=== PATIENT | male | born 1975 | race Caucasian/White ===

== ENCOUNTER 2020-02-14 03:03 | Inpatient (IN) ==
[2020-02-14] MEDS ORDERED: *HR* HYDROmorphone (PF) 1 MG/ML SYRINGE IVP ONE (03:11)
[2020-02-14] MEDS ORDERED: Isovue-370 500 ML BOTTLE IVP ONE (03:11)
[2020-02-14] MEDS ORDERED: 0.9 % Sodium Chloride 1,000 ML IVC ONE (03:11)
[2020-02-14 06:16] LABS: Prothrombin Time 11.8 Seconds (9.4-12.1)
[2020-02-14] MEDS ORDERED: Naloxone 0.4 MG/ML INJ IVP PRN (06:35)
[2020-02-14] MEDS ORDERED: Ondansetron 4 MG/2 ML VIAL IVP PRN (06:35)
[2020-02-14] MEDS: 0.9 % Sodium Chloride 1,000 ML IVC SCH ×2 (06:58→16:26)
[2020-02-14] MEDS: Piperacillin/Tazobactam 3.375 GM in 0.9 % Sodium Chloride Mini Bag 100 ML IVPB SCH ×3 (08:50→22:52)
[2020-02-14] MEDS: Ketorolac 15 MG/ML VIAL IVP SCH ×4 (10:04→23:26)
[2020-02-14] MEDS: *HR* Buprenorphine HCl 8 MG TAB.SUBL SL SCH ×2 (10:05→20:55)
[2020-02-14] MEDS: BuPROPion XL (24 HR) 150 MG TABLET PO SCH (13:41)
[2020-02-14] MEDS ORDERED: Dexamethasone 4 MG/ML VIAL ONE (15:52)
[2020-02-14] MEDS ORDERED: *HR* FentaNYL (PF) 100 MCG/2 ML VIAL ONE (15:52)
[2020-02-14] MEDS ORDERED: *HR* Rocuronium Bromide 50 MG/5 ML VIAL ONE (15:52)
[2020-02-14] MEDS ORDERED: Ondansetron 4 MG/2 ML VIAL ONE (15:52)
[2020-02-14] MEDS ORDERED: Lidocaine -MPF 2% 2 ML VIAL ONE (15:52)
[2020-02-14] MEDS ORDERED: *HR* Midazolam HCl 2 MG/2 ML VIAL ONE (15:52)
[2020-02-14] MEDS ORDERED: *HR* Succinylcholine 200 MG/10 ML VIAL IVP ONE (15:52)
[2020-02-14] MEDS ORDERED: *HR* Propofol 200 MG/20 ML VIAL IVP ONE (15:52)
[2020-02-14] MEDS: Pregabalin 75 MG CAPSULE PO SCH ×2 (16:26→20:56)
[2020-02-14] MEDS: *HR* Heparin 5,000 UNIT/ML VIAL SQ SCH (16:28)
[2020-02-14] MEDS ORDERED: *HR* PHENYLEPHRINE 1,000 MCG/10 ML SYRINGE IVP ONE (16:29)
[2020-02-14] MEDS ORDERED: Indomethacin 50 MG SUPP.RECT RC ONE (17:30)
[2020-02-14] MEDS ORDERED: rOPINIRole 0.25 MG TABLET PO SCH (21:00)
[2020-02-15] MEDS: 0.9 % Sodium Chloride 1,000 ML IVC SCH ×3 (00:04→05:02)
[2020-02-15 02:51] LABS: Basophils % 0.2 %; Eosinophils % 0.2 %; Hemoglobin 13.1 g/dL (12.9-16.9); Immature Granulocytes % 0.3 % (0-4); Lymphocytes % 10.1 %; Mean Corpuscular Hemoglobin 28.4 pg (28.0-33.3); Mean Corpuscular Volume 88.7 fL (83.0-100.0); Mean Platelet Volume 9.9 fL (9.4-12.4); Monocytes # 0.1 K/mcL (0.0-1.3); Neutrophils # 8.8 K/mcL (1.6-8.9); Platelet Count 270 K/mcL (140-400); Red Blood Count 4.62 M/mcL (4.19-5.50); Red Cell Distribution Width 13.5 % (11.5-14.5); Segmented Neutrophils % 88.2 %
[2020-02-15 03:21] LABS: Alanine Aminotransferase 204 Units/L (7-52); Albumin/Globulin Ratio 1.3 (1.1-2.2); Alkaline Phosphatase 303 Units/L (34-104); Aspartate Amino Transferase 185 Units/L (13-39); BUN/Creatinine Ratio 16 (6-26); Bilirubin,Total 5.8 mg/dL (0.3-1.0); Blood Urea Nitrogen 16 mg/dL (6-20); Calcium 8.9 mg/dL (8.6-10.3); Carbon Dioxide 22 mEq/L (23-29); Chloride 107 mEq/L (98-107); Globulin 3.1 g/dL (2.4-3.5); Glucose 103 mg/dL (70-105); Osmolality,Calculated 283 (280-300); Potassium 4.5 mEq/L (3.5-5.1); Sodium 136 mEq/L (136-145); Total Protein 7.1 g/dL (6.4-8.9); eGFR For African Americans > 60 (> 60); eGFR For Non-African Americans > 60 (> 60)
[2020-02-15] MEDS: Ketorolac 15 MG/ML VIAL IVP SCH ×3 (04:54→18:40)
[2020-02-15] MEDS: *HR* Heparin 5,000 UNIT/ML VIAL SQ SCH ×2 (04:55→18:40)
[2020-02-15] MEDS: Piperacillin/Tazobactam 3.375 GM in 0.9 % Sodium Chloride Mini Bag 100 ML IVPB SCH ×2 (08:14→16:18)
[2020-02-15] MEDS: BuPROPion XL (24 HR) 150 MG TABLET PO SCH (08:16)
[2020-02-15] MEDS: *HR* Buprenorphine HCl 8 MG TAB.SUBL SL SCH ×2 (08:16→21:20)
[2020-02-15] MEDS: Pregabalin 75 MG CAPSULE PO SCH ×2 (08:16→21:22)
[2020-02-15] MEDS ORDERED: Nicotine 21 MG PATCH.TD24 TD SCH (09:00)
[2020-02-15] MEDS ORDERED: lisinopriL 5 MG TABLET PO SCH (09:00)
[2020-02-15] MEDS ORDERED: Ringers Solution, Lactated 1,000 ML IVC SCH ×2 (09:15→15:49)
[2020-02-15] MEDS ORDERED: Lidocaine -MPF 2% 2 ML VIAL ONE (09:22)
[2020-02-15] MEDS ORDERED: Ondansetron 4 MG/2 ML VIAL ONE (09:22)
[2020-02-15] MEDS ORDERED: Lidocaine HCL 4 ML Topical Solution (Laryng-O-Jet Kit Sterile Pak) TP ONE (09:22)
[2020-02-15] MEDS ORDERED: *HR* Rocuronium Bromide 50 MG/5 ML VIAL ONE ×2 (09:22→13:30)
[2020-02-15] MEDS ORDERED: *HR* Succinylcholine 200 MG/10 ML VIAL IVP ONE (09:22)
[2020-02-15] MEDS ORDERED: *HR* Midazolam HCl 2 MG/2 ML VIAL ONE (12:14)
[2020-02-15] MEDS ORDERED: *HR* Propofol 200 MG/20 ML VIAL IVP ONE (12:14)
[2020-02-15] MEDS ORDERED: *HR* FentaNYL (PF) 100 MCG/2 ML VIAL ONE (12:14)
[2020-02-15] MEDS ORDERED: CefOXitin 2,000 MG VIAL ONE (12:30)
[2020-02-15] MEDS ORDERED: Dexamethasone 4 MG/ML VIAL ONE (13:06)
[2020-02-15] MEDS ORDERED: *HR* Promethazine 25 MG/ML VIAL IVP PRN (14:24)
[2020-02-15] MEDS ORDERED: Ondansetron 4 MG/2 ML VIAL IVP ONE (14:24)
[2020-02-15] MEDS ORDERED: *HR* OxyCODONE Immed Rel 5 MG TABLET PO STA (14:31)
[2020-02-15] MEDS: *HR* HYDROmorphone (PF) 1 MG/ML SYRINGE IVP PRN ×2 (14:38→14:45)
[2020-02-15] MEDS ORDERED: *HR* Labetalol 20 MG/4 ML SYRINGE IVP ONE ×2 (14:59→15:00)
[2020-02-15] MEDS ORDERED: cefOXitin 1,000 MG, 0.9 % Sodium Chloride 1,000 ML IR ONE (15:00)
[2020-02-15] MEDS ORDERED: Ondansetron 4 MG/2 ML VIAL IVP PRN (15:49)
[2020-02-15] MEDS ORDERED: Naloxone 0.4 MG/ML INJ IVP PRN (15:49)
[2020-02-15] MEDS ORDERED: *HR* OxyCODONE/APAP 5/325 TABLET PO ONE (17:10)
[2020-02-15] MEDS ORDERED: rOPINIRole 0.25 MG TABLET PO SCH (21:00)
[2020-02-16] MEDS: Ketorolac 15 MG/ML VIAL IVP SCH ×2 (01:02→05:25)
[2020-02-16] MEDS: Piperacillin/Tazobactam 3.375 GM in 0.9 % Sodium Chloride Mini Bag 100 ML IVPB SCH ×2 (01:02→07:45)
[2020-02-16 03:47] LABS: Hematocrit 36.9 % (37.5-50.1); Hemoglobin 11.7 g/dL (12.9-16.9); Mean Corpuscular HGB Conc 31.7 g/dL (31.6-35.5); Mean Corpuscular Hemoglobin 28.4 pg (28.0-33.3); Mean Corpuscular Volume 89.6 fL (83.0-100.0); Mean Platelet Volume 10.1 fL (9.4-12.4); Platelet Count 263 K/mcL (140-400); Red Blood Count 4.12 M/mcL (4.19-5.50); Red Cell Distribution Width 13.8 % (11.5-14.5); White Blood Count 14.3 K/mcL (4.3-11.1)
[2020-02-16 04:07] LABS: Alanine Aminotransferase 224 Units/L (7-52); Albumin 3.7 g/dL (3.5-5.7); Albumin/Globulin Ratio 1.2 (1.1-2.2); Alkaline Phosphatase 277 Units/L (34-104); Aspartate Amino Transferase 190 Units/L (13-39); BUN/Creatinine Ratio 17 (6-26); Bilirubin,Total 3.3 mg/dL (0.3-1.0); Blood Urea Nitrogen 17 mg/dL (6-20); Calcium 8.8 mg/dL (8.6-10.3); Carbon Dioxide 22 mEq/L (23-29); Chloride 105 mEq/L (98-107); Glucose 121 mg/dL (70-105); Osmolality,Calculated 287 (280-300); Potassium 3.9 mEq/L (3.5-5.1); Sodium 137 mEq/L (136-145); Total Protein 6.7 g/dL (6.4-8.9); eGFR For African Americans > 60 (> 60); eGFR For Non-African Americans > 60 (> 60)
[2020-02-16] MEDS: *HR* Heparin 5,000 UNIT/ML VIAL SQ SCH (05:24)
[2020-02-16 06:35] VITALS: BP 130/85
[2020-02-16] MEDS: *HR* Buprenorphine HCl 8 MG TAB.SUBL SL SCH (07:46)
[2020-02-16] MEDS: Pregabalin 75 MG CAPSULE PO SCH (07:47)
[2020-02-16] MEDS ORDERED: Nicotine 21 MG PATCH.TD24 TD SCH (09:00)
[2020-02-16] MEDS ORDERED: BuPROPion XL (24 HR) 150 MG TABLET PO SCH (09:00)
== END 2020-02-16 11:53 | disposition home or self-care (01) | DRG 853 ==
LOC: 3ANU 03:03 → EMEROOARM 03:03 → SUATTDRO 05:13 → 3ANU 05:37
PROVIDERS: ADMIT Internal Medicine; ATTEND Internal Medicine

== ENCOUNTER 2020-02-25 16:21 | Inpatient (IN) ==
[2020-02-25] MEDS ORDERED: Ketorolac 30 MG/ML VIAL IVP ONE (16:39)
[2020-02-25] MEDS ORDERED: 0.9 % Sodium Chloride 1,000 ML IVC ONE (16:39)
[2020-02-25] MEDS ORDERED: Isovue-370 500 ML BOTTLE IVP ONE ×2 (16:40→16:45)
[2020-02-25 16:59] LABS: Basophils # 0.1 K/mcL (0.0-0.2); Basophils % 0.2 %; Eosinophils # 0.3 K/mcL (0.0-0.6); Eosinophils % 1.4 %; Hematocrit 33.6 % (37.5-50.1); Hemoglobin 10.8 g/dL (12.9-16.9); Immature Granulocytes % 1.2 % (0-4); Lymphocytes # 1.6 K/mcL (0.6-4.6); Lymphocytes % 7.9 %; Mean Corpuscular HGB Conc 32.1 g/dL (31.6-35.5); Mean Corpuscular Hemoglobin 28.9 pg (28.0-33.3); Mean Corpuscular Volume 89.8 fL (83.0-100.0); Monocytes # 1.2 K/mcL (0.0-1.3); Neutrophils # 16.7 K/mcL (1.6-8.9); Nucleated Red Blood Cells 0.1 /100 WBC (0); Platelet Count 500 K/mcL (140-400); Red Blood Count 3.74 M/mcL (4.19-5.50); Red Cell Distribution Width 14.5 % (11.5-14.5); Segmented Neutrophils % 83.3 %
[2020-02-25 17:01] LABS: Bilirubin,Urine Small (Negative); Blood,Urine Negative (Negative); Clarity,Urine Clear (Clear); Color,Urine Dark Yellow (Yellow); Glucose,Urine (UA) Normal (Normal); Ketones,Urine Negative (Negative); Leukocyte Esterase,Urine Negative (Negative); Nitrite,Urine Negative (Negative); Protein,Urine 100 mg/dL (Neg-Trace); Specific Gravity,Urine > 1.030 (1.010-1.025)
[2020-02-25 17:05] LABS: Hyaline Casts,Urine None Seen per lpf (None-Few); Squamous Epithelial Cell,Urine Many per lpf (None-Few)
[2020-02-25 17:08] LABS: INR 1.3; Prothrombin Time 15.2 Seconds (9.4-12.1)
[2020-02-25 17:11] LABS: Activated Partial Thrombo Time 30.4 Seconds (26.0-36.0)
[2020-02-25 17:19] LABS: Alanine Aminotransferase 31 Units/L (7-52); Albumin 3.3 g/dL (3.5-5.7); Albumin/Globulin Ratio 0.8 (1.1-2.2); Alkaline Phosphatase 416 Units/L (34-104); Amylase 12 Units/L (29-103); Aspartate Amino Transferase 39 Units/L (13-39); BUN/Creatinine Ratio 15 (6-26); Bilirubin,Direct 0.5 mg/dL (0.0-0.2); Bilirubin,Indirect 0.8 mg/dL (0.0-1.0); Bilirubin,Total 1.3 mg/dL (0.3-1.0); Blood Urea Nitrogen 12 mg/dL (6-20); Calcium 9.1 mg/dL (8.6-10.3); Carbon Dioxide 24 mEq/L (23-29); Chloride 101 mEq/L (98-107); Globulin 4.1 g/dL (2.4-3.5); Glucose 117 mg/dL (70-105); Lipase 14 Units/L (11-82); Osmolality,Calculated 279 (280-300); Potassium 3.6 mEq/L (3.5-5.1); Sodium 134 mEq/L (136-145); Total Protein 7.4 g/dL (6.4-8.9); eGFR For African Americans > 60 (> 60); eGFR For Non-African Americans > 60 (> 60)
[2020-02-25 17:20] LABS: Amorphous Sediment,Urine Few per hpf (Few); Bacteria,Urine Few per hpf (None-Few); RBC,Urine 0-3 per hpf (0-3); WBC,Urine 0-3 per hpf (0-3)
[2020-02-25] MEDS ORDERED: Piperacillin/Tazobactam 3.375 GM in Water for inj. (sterile) 20 ML IVP ONE (17:51)
[2020-02-25] MEDS ORDERED: *HR* HYDROmorphone (PF) 1 MG/ML SYRINGE IVP ONE (18:13)
[2020-02-25] MEDS ORDERED: Naloxone 0.4 MG/ML INJ IVP PRN (20:13)
[2020-02-25] MEDS ORDERED: Ondansetron 4 MG/2 ML VIAL IVP PRN (20:13)
[2020-02-25] MEDS: Ringers Solution, Lactated 1,000 ML IVC SCH (21:05)
[2020-02-25] MEDS ORDERED: *HR* Buprenorphine HCl 8 MG TAB.SUBL SL SCH (21:45)
[2020-02-25] MEDS ORDERED: Acetaminophen IV 1,000 MG/100 ML INFUS..BTL IVPB ONE (21:47)
[2020-02-25] MEDS: *HR* Buprenorphine HCl 8 MG TAB.SUBL SL SCH (22:44)
[2020-02-26] MEDS: Piperacillin/Tazobactam 3.375 GM in 0.9 % Sodium Chloride Mini Bag 100 ML IVPB SCH ×3 (00:40→15:50)
[2020-02-26] MEDS: *HR* FentaNYL (PF) 100 MCG/2 ML VIAL IVP PRN ×6 (01:38→21:25)
[2020-02-26] MEDS ORDERED: Albuterol 2.5 MG/3 ML NEBULIZER IH PRN (02:45)
[2020-02-26] MEDS: Nicotine 21 MG PATCH.TD24 TD SCH (07:32)
[2020-02-26] MEDS: *HR* Buprenorphine HCl 8 MG TAB.SUBL SL SCH ×2 (07:33→21:16)
[2020-02-26 08:21] LABS: Basophils # 0.1 K/mcL (0.0-0.2); Basophils % 0.4 %; Eosinophils # 0.4 K/mcL (0.0-0.6); Eosinophils % 1.8 %; Hematocrit 30.6 % (37.5-50.1); Hemoglobin 9.7 g/dL (12.9-16.9); Immature Granulocytes % 0.7 % (0-4); Lymphocytes # 1.6 K/mcL (0.6-4.6); Lymphocytes % 8.1 %; Mean Corpuscular HGB Conc 31.7 g/dL (31.6-35.5); Mean Corpuscular Hemoglobin 28.2 pg (28.0-33.3); Mean Platelet Volume 9.9 fL (9.4-12.4); Monocytes # 1.7 K/mcL (0.0-1.3); Monocytes % 8.5 %; Neutrophils # 16.1 K/mcL (1.6-8.9); Platelet Count 509 K/mcL (140-400); Red Blood Count 3.44 M/mcL (4.19-5.50); Red Cell Distribution Width 14.6 % (11.5-14.5); Segmented Neutrophils % 80.5 %
[2020-02-26 08:28] LABS: INR 1.4; Prothrombin Time 15.7 Seconds (9.4-12.1)
[2020-02-26 08:30] LABS: Activated Partial Thrombo Time 30.3 Seconds (26.0-36.0)
[2020-02-26] MEDS ORDERED: 0.9 % Sodium Chloride 500 ML ONE (09:32)
[2020-02-26] MEDS ORDERED: *HR* FentaNYL (PF) 100 MCG/2 ML VIAL IVP ONE (09:37)
[2020-02-26] MEDS ORDERED: *HR* Midazolam HCl 2 MG/2 ML VIAL IVP ONE (09:37)
[2020-02-26 09:39] LABS: Alanine Aminotransferase 33 Units/L (7-52); Albumin 3.1 g/dL (3.5-5.7); Alkaline Phosphatase 385 Units/L (34-104); Aspartate Amino Transferase 41 Units/L (13-39); BUN/Creatinine Ratio 16 (6-26); Bilirubin,Total 1.2 mg/dL (0.3-1.0); Blood Urea Nitrogen 13 mg/dL (6-20); Calcium 8.7 mg/dL (8.6-10.3); Carbon Dioxide 21 mEq/L (23-29); Chloride 104 mEq/L (98-107); Glucose 88 mg/dL (70-105); Osmolality,Calculated 280 (280-300); Sodium 135 mEq/L (136-145); eGFR For African Americans > 60 (> 60); eGFR For Non-African Americans > 60 (> 60)
[2020-02-26 09:51] LABS: Albumin/Globulin Ratio 0.8 (1.1-2.2); Globulin 3.7 g/dL (2.4-3.5); Total Protein 6.8 g/dL (6.4-8.9)
[2020-02-26] MEDS: Ringers Solution, Lactated 1,000 ML IVC SCH (11:38)
[2020-02-27] MEDS: *HR* FentaNYL (PF) 100 MCG/2 ML VIAL IVP PRN ×2 (04:42→12:18)
[2020-02-27] MEDS ORDERED: Ringers Solution, Lactated 1,000 ML IVC SCH ×2 (06:30→09:15)
[2020-02-27 07:15] LABS: Basophils # 0.1 K/mcL (0.0-0.2); Basophils % 0.5 %; Eosinophils # 0.4 K/mcL (0.0-0.6); Eosinophils % 2.3 %; Hematocrit 30.2 % (37.5-50.1); Hemoglobin 9.5 g/dL (12.9-16.9); Lymphocytes % 10.8 %; Mean Corpuscular HGB Conc 31.5 g/dL (31.6-35.5); Mean Corpuscular Hemoglobin 28.4 pg (28.0-33.3); Mean Corpuscular Volume 90.1 fL (83.0-100.0); Mean Platelet Volume 9.9 fL (9.4-12.4); Monocytes # 1.4 K/mcL (0.0-1.3); Monocytes % 7.7 %; Neutrophils # 14.1 K/mcL (1.6-8.9); Platelet Count 578 K/mcL (140-400); Red Blood Count 3.35 M/mcL (4.19-5.50); Red Cell Distribution Width 14.6 % (11.5-14.5); Segmented Neutrophils % 77.7 %; White Blood Count 18.2 K/mcL (4.3-11.1)
[2020-02-27 07:37] LABS: Alanine Aminotransferase 26 Units/L (7-52); Albumin 2.9 g/dL (3.5-5.7); Albumin/Globulin Ratio 0.8 (1.1-2.2); Alkaline Phosphatase 328 Units/L (34-104); Aspartate Amino Transferase 31 Units/L (13-39); BUN/Creatinine Ratio 16 (6-26); Blood Urea Nitrogen 12 mg/dL (6-20); Calcium 8.7 mg/dL (8.6-10.3); Carbon Dioxide 20 mEq/L (23-29); Chloride 106 mEq/L (98-107); Globulin 3.6 g/dL (2.4-3.5); Glucose 68 mg/dL (70-105); Osmolality,Calculated 284 (280-300); Potassium 3.9 mEq/L (3.5-5.1); Sodium 138 mEq/L (136-145); Total Protein 6.5 g/dL (6.4-8.9); eGFR For African Americans > 60 (> 60); eGFR For Non-African Americans > 60 (> 60)
[2020-02-27] MEDS ORDERED: *HR* Succinylcholine 200 MG/10 ML VIAL IVP ONE (07:40)
[2020-02-27] MEDS ORDERED: Dexamethasone 4 MG/ML VIAL ONE (07:40)
[2020-02-27] MEDS ORDERED: Ondansetron 4 MG/2 ML VIAL ONE (07:40)
[2020-02-27] MEDS ORDERED: Lidocaine -MPF 2% 2 ML VIAL ONE (07:40)
[2020-02-27] MEDS ORDERED: *HR* FentaNYL (PF) 100 MCG/2 ML VIAL ONE ×2 (07:41→08:53)
[2020-02-27] MEDS ORDERED: *HR* Propofol 200 MG/20 ML VIAL IVP ONE (07:41)
[2020-02-27] MEDS ORDERED: Dextrose Gel 15 GM/37.5 ML TUBE PO PRN ×2 (08:04)
[2020-02-27] MEDS ORDERED: *HR* Dextrose 50 % in Water (Syg) 50 ML SYRINGE IVP PRN (08:04)
[2020-02-27] MEDS ORDERED: D5% in Water 1,000 ML IVC PRN (08:04)
[2020-02-27] MEDS: *HR* Buprenorphine HCl 8 MG TAB.SUBL SL SCH ×2 (08:14→20:50)
[2020-02-27] MEDS: Piperacillin/Tazobactam 3.375 GM in 0.9 % Sodium Chloride Mini Bag 100 ML IVPB SCH ×4 (08:15→23:50)
[2020-02-27] MEDS ORDERED: D5% in Lactated Ringers 1,000 ML IVC SCH (08:15)
[2020-02-27] MEDS: Nicotine 21 MG PATCH.TD24 TD SCH (08:16)
[2020-02-27] MEDS ORDERED: Indomethacin 50 MG SUPP.RECT RC ONE (10:32)
[2020-02-27] MEDS ORDERED: *HR* OxyCODONE Immed Rel 5 MG TABLET PO PRN (10:56)
[2020-02-27] MEDS ORDERED: Ondansetron 4 MG/2 ML VIAL IVP ONE (10:56)
[2020-02-27] MEDS: Insulin LISPRO 300 UNITS/3 ML VIAL SQ SCH ×2 (12:19→17:57)
[2020-02-27] MEDS ORDERED: *HR* FentaNYL (PF) 100 MCG/2 ML VIAL IVP PRN (12:19)
[2020-02-28] MEDS: Insulin LISPRO 300 UNITS/3 ML VIAL SQ SCH ×2 (01:10→05:58)
[2020-02-28] MEDS ORDERED: *HR* Heparin 5,000 UNIT/ML VIAL SQ SCH (06:00)
[2020-02-28 07:08] VITALS: BP 136/84
[2020-02-28 07:57] LABS: BUN/Creatinine Ratio 16 (6-26); Blood Urea Nitrogen 18 mg/dL (6-20); Calcium 8.5 mg/dL (8.6-10.3); Carbon Dioxide 25 mEq/L (23-29); Chloride 105 mEq/L (98-107); Glucose 153 mg/dL (70-105); Magnesium 1.9 mg/dL (1.6-2.6); Osmolality,Calculated 289 (280-300); Phosphorous 4.1 mg/dL (2.7-4.5); Potassium 4.2 mEq/L (3.5-5.1); Sodium 137 mEq/L (136-145); eGFR For African Americans > 60 (> 60); eGFR For Non-African Americans > 60 (> 60)
[2020-02-28 08:03] LABS: Basophils % 0.2 %; Eosinophils # 0.1 K/mcL (0.0-0.6); Eosinophils % 0.2 %; Hematocrit 29.8 % (37.5-50.1); Hemoglobin 9.6 g/dL (12.9-16.9); Immature Granulocytes % 1.8 % (0-4); Lymphocytes # 1.6 K/mcL (0.6-4.6); Lymphocytes % 7.3 %; Mean Corpuscular HGB Conc 32.2 g/dL (31.6-35.5); Mean Platelet Volume 9.6 fL (9.4-12.4); Monocytes # 1.4 K/mcL (0.0-1.3); Monocytes % 6.4 %; Neutrophils # 18.1 K/mcL (1.6-8.9); Platelet Count 601 K/mcL (140-400); Red Blood Count 3.31 M/mcL (4.19-5.50); Red Cell Distribution Width 14.1 % (11.5-14.5); Segmented Neutrophils % 84.1 %; White Blood Count 21.6 K/mcL (4.3-11.1)
[2020-02-28] MEDS: Piperacillin/Tazobactam 3.375 GM in 0.9 % Sodium Chloride Mini Bag 100 ML IVPB SCH (08:11)
[2020-02-28] MEDS: *HR* Buprenorphine HCl 8 MG TAB.SUBL SL SCH (08:11)
[2020-02-28] MEDS: Nicotine 21 MG PATCH.TD24 TD SCH (08:11)
[2020-02-28] MEDS ORDERED: Aminoglycoside Consult 1 EACH MC ONE (11:37)
[2020-02-28] MEDS ORDERED: Pregabalin 75 MG CAPSULE PO SCH (15:00)
[2020-02-28] MEDS ORDERED: rOPINIRole 0.25 MG TABLET PO SCH (21:00)
[2020-02-29] MEDS ORDERED: BuPROPion XL (24 HR) 150 MG TABLET PO SCH (09:00)
[2020-02-29] MEDS ORDERED: lisinopriL 5 MG TABLET PO SCH (09:00)
== END 2020-02-28 11:38 | disposition left against medical advice (07) | DRG 871 ==
LOC: 2NENU 16:21 → EMEROOARM 16:21 → SUATTDRO 18:28 → 2NENU 19:38 → 3ANU 02-26 02:11 → SUATTDRO 02-26 11:43
PROVIDERS: ADMIT Internal Medicine; ATTEND Internal Medicine
PROC: IRDRAIN (2020-02-26 12:00)

== ENCOUNTER 2020-03-14 20:23 | Observation (INO) ==
[2020-03-14] MEDS ORDERED: Isovue-370 500 ML BOTTLE IVP ONE (20:55)
[2020-03-14 21:30] LABS: Basophils # 0.1 K/mcL (0.0-0.2); Basophils % 1.2 %; Eosinophils # 0.8 K/mcL (0.0-0.6); Eosinophils % 7.6 %; Hematocrit 34.8 % (37.5-50.1); Hemoglobin 10.8 g/dL (12.9-16.9); Immature Granulocytes % 0.3 % (0-4); Lymphocytes # 1.7 K/mcL (0.6-4.6); Lymphocytes % 16.4 %; Mean Platelet Volume 9.6 fL (9.4-12.4); Monocytes # 0.9 K/mcL (0.0-1.3); Monocytes % 8.3 %; Neutrophils # 6.8 K/mcL (1.6-8.9); Platelet Count 497 K/mcL (140-400); Red Cell Distribution Width 13.4 % (11.5-14.5); Segmented Neutrophils % 66.2 %; White Blood Count 10.3 K/mcL (4.3-11.1)
[2020-03-14 21:50] LABS: Calcium 9.5 mg/dL (8.6-10.3)
[2020-03-14] MEDS ORDERED: 0.9 % Sodium Chloride 1,000 ML IVC ONE (22:01)
[2020-03-14] MEDS ORDERED: Vancomycin 1,500 MG/265 ML IV.SOLN IVPB ONE (22:12)
[2020-03-14] MEDS ORDERED: Piperacillin/Tazobactam 3.375 GM in 0.9 % Sodium Chloride Mini Bag 100 ML IVPB ONE (22:12)
[2020-03-15] MEDS ORDERED: Acetaminophen 325 MG TABLET PO PRN (04:07)
[2020-03-15] MEDS ORDERED: Ondansetron ODT 4 MG TAB.RAPDIS SL PRN (04:07)
[2020-03-15] MEDS ORDERED: Naloxone 0.4 MG/ML INJ IVP PRN (04:07)
[2020-03-15 06:48] LABS: Basophils # 0.1 K/mcL (0.0-0.2); Basophils % 1.2 %; Eosinophils # 1.1 K/mcL (0.0-0.6); Eosinophils % 9.1 %; Hematocrit 33.9 % (37.5-50.1); Hemoglobin 10.6 g/dL (12.9-16.9); Immature Granulocytes % 0.4 % (0-4); Lymphocytes # 2.5 K/mcL (0.6-4.6); Lymphocytes % 20.9 %; Mean Corpuscular HGB Conc 31.3 g/dL (31.6-35.5); Mean Corpuscular Hemoglobin 27.3 pg (28.0-33.3); Mean Corpuscular Volume 87.4 fL (83.0-100.0); Monocytes # 0.9 K/mcL (0.0-1.3); Monocytes % 7.7 %; Neutrophils # 7.2 K/mcL (1.6-8.9); Platelet Count 523 K/mcL (140-400); Red Blood Count 3.88 M/mcL (4.19-5.50); Red Cell Distribution Width 13.7 % (11.5-14.5); Segmented Neutrophils % 60.7 %; White Blood Count 11.9 K/mcL (4.3-11.1)
[2020-03-15 06:52] LABS: INR 1.3; Prothrombin Time 14.9 Seconds (9.4-12.1)
[2020-03-15 07:08] LABS: Alanine Aminotransferase 19 Units/L (7-52); Albumin 3.4 g/dL (3.5-5.7); Albumin/Globulin Ratio 0.7 (1.1-2.2); Alkaline Phosphatase 176 Units/L (34-104); Aspartate Amino Transferase 20 Units/L (13-39); BUN/Creatinine Ratio 12 (6-26); Bilirubin,Total 0.5 mg/dL (0.3-1.0); Blood Urea Nitrogen 17 mg/dL (6-20); Calcium 9.1 mg/dL (8.6-10.3); Carbon Dioxide 24 mEq/L (23-29); Chloride 102 mEq/L (98-107); Globulin 4.6 g/dL (2.4-3.5); Glucose 98 mg/dL (70-105); Osmolality,Calculated 284 (280-300); Potassium 4.2 mEq/L (3.5-5.1); Sodium 136 mEq/L (136-145); eGFR For African Americans > 60 (> 60); eGFR For Non-African Americans 52 (> 60)
[2020-03-15 07:25] LABS: Lactate Dehydrogenase 240 Units/L (140-271)
[2020-03-15 07:52] LABS: RBC,Pleural Fluid 0.022 M/mcL
[2020-03-15 07:54] LABS: Total Protein,Pleural Fluid 5.5 g/dL
[2020-03-15] MEDS ORDERED: 0.9 % Sodium Chloride 500 ML IVC SCH (08:00)
[2020-03-15] MEDS: BuPROPion XL (24 HR) 150 MG TABLET PO SCH (09:50)
[2020-03-15] MEDS: MetroNIDAZOLE 500 MG/100 ML 500 MG/100 ML BAG IVPB SCH ×2 (09:50→15:25)
[2020-03-15] MEDS: Pregabalin 75 MG CAPSULE PO SCH ×3 (09:50→20:38)
[2020-03-15] MEDS: Vancomycin 1,500 MG/265 ML IV.SOLN IVPB SCH (09:51)
[2020-03-15] MEDS: Cefepime HCl 2,000 MG in Water for inj. (sterile) 20 ML IVP SCH ×2 (09:51→15:23)
[2020-03-15 10:24] LABS: Basophils,Pleural Fluid 0 %
[2020-03-15 10:25] LABS: Appearance of Pleural Fl Hazy (Clear)
[2020-03-15] MEDS ORDERED: Aminoglycoside Consult 1 EACH MC ONE (14:05)
[2020-03-15] MEDS ORDERED: rOPINIRole 0.25 MG TABLET PO SCH (21:00)
[2020-03-15] MEDS: SUBOXONE SL SCH (21:06)
[2020-03-16] MEDS: Cefepime HCl 2,000 MG in Water for inj. (sterile) 20 ML IVP SCH (00:47)
[2020-03-16] MEDS: MetroNIDAZOLE 500 MG/100 ML 500 MG/100 ML BAG IVPB SCH (00:47)
[2020-03-16] MEDS: Vancomycin 1,500 MG/265 ML IV.SOLN IVPB SCH (00:54)
[2020-03-16 01:51] LABS: Basophils # 0.1 K/mcL (0.0-0.2); Basophils % 1.1 %; Eosinophils # 0.9 K/mcL (0.0-0.6); Eosinophils % 9.6 %; Hematocrit 30.3 % (37.5-50.1); Hemoglobin 9.3 g/dL (12.9-16.9); Immature Granulocytes % 0.5 % (0-4); Lymphocytes # 2.6 K/mcL (0.6-4.6); Lymphocytes % 27.2 %; Mean Corpuscular HGB Conc 30.7 g/dL (31.6-35.5); Mean Corpuscular Hemoglobin 26.9 pg (28.0-33.3); Mean Corpuscular Volume 87.6 fL (83.0-100.0); Monocytes # 0.6 K/mcL (0.0-1.3); Monocytes % 6.7 %; Neutrophils # 5.1 K/mcL (1.6-8.9); Platelet Count 425 K/mcL (140-400); Red Blood Count 3.46 M/mcL (4.19-5.50); Segmented Neutrophils % 54.9 %; White Blood Count 9.4 K/mcL (4.3-11.1)
[2020-03-16 02:09] LABS: BUN/Creatinine Ratio 12 (6-26); Blood Urea Nitrogen 14 mg/dL (6-20); Calcium 8.6 mg/dL (8.6-10.3); Carbon Dioxide 23 mEq/L (23-29); Chloride 105 mEq/L (98-107); Glucose 87 mg/dL (70-105); Magnesium 1.8 mg/dL (1.6-2.6); Osmolality,Calculated 284 (280-300); Phosphorous 4.6 mg/dL (2.7-4.5); Potassium 4.1 mEq/L (3.5-5.1); Sodium 137 mEq/L (136-145); eGFR For African Americans > 60 (> 60); eGFR For Non-African Americans > 60 (> 60)
[2020-03-16] MEDS ORDERED: Piperacillin/Tazobactam 3.375 GM in 0.9 % Sodium Chloride Mini Bag 100 ML IVPB SCH (08:00)
[2020-03-16] MEDS: BuPROPion XL (24 HR) 150 MG TABLET PO SCH (08:57)
[2020-03-16] MEDS: Pregabalin 75 MG CAPSULE PO SCH (08:58)
[2020-03-16] MEDS: SUBOXONE SL SCH (08:59)
[2020-03-16 11:31] VITALS: BP 122/81
[2020-03-16 21:06] LABS: Fluid Source for Bilirubin PLEURAL FLUID
== END 2020-03-16 14:06 | disposition home or self-care (01) ==
LOC: 2NENU 20:23 → EMEROOARM 20:23 → SUATTDRO 23:42 → 2NENU 03-15 00:31 → 2ANU 03-15 14:44
PROVIDERS: ADMIT Internal Medicine; ATTEND Internal Medicine